=== PATIENT | female | born 1940 | race African-American/Black ===

== ENCOUNTER 2020-03-15 14:47 | Inpatient (IN) | payer MEDICARE, OTHER ==
[~2020-03-15] VITALS: Ht 160 cm; Wt 69.4 kg
[~2020-03-15 14:47] MED LIST: DICY20TA32 PO; FENO160T PO; FOLI1TAB94 PO; HYDR12.55 PO; LOSA100T3 PO; MELA3TAB41 PO; METH500T PO; OMEP20CA4 PO; SPIR25TA PO
--- NOTE | 2020-03-15 15:22 | NUR ---
ONDINA FROM [facility]. TO ER BED 5. AAOX4. NOT IN RESP DISTRESS, BRAETHING EVEN AND UNLABORED. BROUGHT IN FOR DIZZYNESS, WEAKNESS AND COUGH SINCE THIS MORNING. PT REPORT NAUSEA BUT DENIES VOMITING NOR ABDOMINAL PAIN. PT NOTED TEMP OF 99.5. MD AT BEDSIDE FOR EVAL. AWAITING FOR ORDERS
--- NOTE | 2020-03-15 16:08 | NUR ---
IV LINE OBTAINED ON L WRIST 20G. BLOOD DRAWN AND GIVEN TO LAB DAVID H AT BEDSIDE. EKG DONE BY EMT.
[2020-03-15 16:16] LABS: BASOPHILS % (AUTO) 0.7 % (0.0-2.0); EOSINOPHILS % (AUTO) 0.3 % (0.0-6.0); HEMATOCRIT 39 % (33-45); HEMOGLOBIN 12.7 g/dL (11.5-14.8); LYMPHOCYTES % (AUTO) 30.5 % (20.0-44.0); MEAN CORPUSCULAR HGB CONC 32 g/dl (31.0-36.0); MEAN CORPUSCULAR VOLUME 93 fL (82-100); MONOCYTES # (AUTO) 0.5 /CMM (0.1-1.30); MONOCYTES % (AUTO) 16.5 % (2.0-12.0); NEUTROPHILS # (AUTO) 1.7 /CMM (1.8-8.9); PLATELET COUNT (AUTO) 200 /CMM (150-450); RED BLOOD CELL COUNT(AUTO) 4.24 MIL/uL (4.0-5.2); WHITE BLOOD COUNT (AUTO) 3.3 K/uL (4.3-11.0)
--- NOTE | 2020-03-15 16:27 | NUR ---
TO CT ON [place]
[2020-03-15 16:32] LABS: CALCIUM, SERUM 9.7 mg/dL (8.5-10.1); CARBON DIOXIDE 30 mmol/L (21-32); CHLORIDE 103 mmol/L (98-107); CREATININE 1.2 mg/dL (0.6-1.3); GLUCOSE 130 mg/dL (74-106); POTASSIUM 4.3 mmol/L (3.5-5.1); SODIUM SERUM 138 mmol/L (136-145); UREA NITROGEN, BLOOD 21 mg/dL (7-18)
[2020-03-15 17:55] LABS: BAND % (MANUAL) 5 % (0.0-5.0); LYMPHOCYTES % (MANUAL) 35 % (16-48); MONOCYTES % (MANUAL) 11 % (0-11.0); NEUTROPHILS % (MANUAL) 49 (42-76)
--- NOTE | 2020-03-15 18:00 | NUR ---
CALLED RAYNA LOMBARDI [phone] FOOD BAGGING MACHINE OPERATOR IS DIGNA SPEAKING WITH DR. HAMLIN.
--- NOTE | 2020-03-15 18:47 | NUR ---
US DONE AT BEDSIDE
--- NOTE | 2020-03-15 20:05 | NUR ---
BED 306-2
--- NOTE | 2020-03-15 20:17 | NUR ---
REPORT GIVEN TO VALERIE REDDY FOR CHUY
[2020-03-15 20:30] VITALS: BP 139/71
--- NOTE | 2020-03-15 20:30 | NUR ---
PT TRANSPORTED TO UNIT ON [place] WITH EMT AND RN AT BEDSIDE USING ACLS PROTOCOL. NAD NOTED DURING TRANSPORT. PT AMBULATED FROM GURNEY TO BED WITH MIN SBA.
--- NOTE | 2020-03-15 21:00 | NUR ---
TUBE COVERER NOTES BODY TEMPERATURE OF 99.6, COOLING MEASURES PROVIDED.
--- NOTE | 2020-03-15 21:00 | NUR ---
WHEEL BORERADVANCED PRACTICE PROVIDER NOTES RECEIVED PATIENT FROM ER VIA KAREN, ALERT AND ORIENTED X 3, AMBULATORY. VERBALLY RESPONSIVE AND ABLE TO FOLLOW DIRECTIONS. BREATHING REGULAR AND UNLABORED ON ROOM AIR. LEFT WRIST G20 IV LINE INTACT AND PATENT, FLUSHING WELL WITH NO BLEEDING OR S/S OF INFILTRATION NOTED. VITAL SIGNS TAKEN. BODY ASSESSMENT DONE, OBSERVED WITH GENERALIZED SKIN DRYNESS. BELONGINGS CHECKED BY JOURNEYMAN TOOL AND DIE MAKER. PATIENT HAS A POLST AND ALSO WISHES TO BE FULL CODE. ATTACHED TO FLAVOR ROOM WORKER WITH INITIAL RHYTHM OF NSR AT 74bpm. DENIES SUICIDAL IDEATION. NO COMPLAINTS OF PAIN/DISCOMFORT REPORTED AT THIS TIME. BED LOW AND LOCKED ON SEMI FOWLERS POSITION. CALL LIGHT IN REACH, BED ALARM ON. WILL CONTINUE TO MONITOR.
[2020-03-15] MEDS ORDERED: IV NS 0.9% 1,000 ML IV PRN (22:00)
--- NOTE | 2020-03-15 22:00 | NUR ---
FIELD ARTILLERY CANNONEER NOTES RECHECK BODY TEMP. 99.1
--- NOTE | 2020-03-15 23:00 | NUR ---
FAMILY LIFE COUNSELOR NOTES CALLED 'S OFFICE AND SPOKE TO ON-CALL ORDER DETAILER LE WITH LAB ORDERS, DO EKG AND 2D ECHO IN AM, CARDIAC DIET, CONTINUE HOME MEDS AND START IV FLUIDS ALL NOTED AND CARRIED OUT.
[2020-03-16] VITALS: BP 149/85
--- NOTE | 2020-03-16 01:30 | NUR ---
DIRECT SUPPORT STAFF MEMBER NOTES SPECIMEN FOR URINALYSIS OBTAINED, KEPT ON THE FRIDGE.
[2020-03-16 03:45] LABS: APPEARANCE,URINE CLEAR (CLEAR); BILIRUBIN,URINE NEGATIVE (NEGATIVE); BLOOD, URINE SMALL Ery/uL (NEGATIVE); COLOR,URINE YELLOW (YELLOW); KETONES,URINE NEGATIVE (NEGATIVE); LEUKOCYTE ESTERASE ,URINE TRACE (NEGATIVE); NITRITE, URINE NEGATIVE (NEGATIVE); PH,URINE 5.5 (5.0-8.0); PROTEIN,URINE NEGATIVE (NEGATIVE); UGLUCOSE NEGATIVE (NEGATIVE); UROBILINOGEN,URINE 0.2 EU/dL (0.2)
[2020-03-16 03:50] LABS: BACTERIA,URINE Few /HPF (None Seen); RBC,URINE 21-50 /HPF (0-2); SQUAMOUS EPITHELIAL CELL,UR Few /HPF (None Seen); WBC,URINE 21-50 /HPF (0-3)
[2020-03-16 04:00] VITALS: BP 154/83
[2020-03-16 06:16] LABS: BASOPHILS % (AUTO) 0.6 % (0.0-2.0); EOSINOPHILS % (AUTO) 0.6 % (0.0-6.0); HEMATOCRIT 37 % (33-45); HEMOGLOBIN 12.1 g/dL (11.5-14.8); LYMPHOCYTES # (AUTO) 1.1 /CMM (0.8-4.8); LYMPHOCYTES % (AUTO) 41.7 % (20.0-44.0); MEAN CORPUSCULAR HGB CONC 33 g/dl (31.0-36.0); MEAN CORPUSCULAR VOLUME 93 fL (82-100); MONOCYTES # (AUTO) 0.4 /CMM (0.1-1.30); MONOCYTES % (AUTO) 16.8 % (2.0-12.0); NEUTROPHILS % (AUTO) 40.3 % (43.0-81.0); PLATELET COUNT (AUTO) 175 /CMM (150-450); RED BLOOD CELL COUNT(AUTO) 3.94 MIL/uL (4.0-5.2); WHITE BLOOD COUNT (AUTO) 2.6 K/uL (4.3-11.0)
--- NOTE | 2020-03-16 06:20 | NUR ---
FOOD SERVICE TRAY ATTENDANT CLOSING NOTES PATIENT IN BED ALERT AND ORIENTED X 3. AFEBRILE WITH NO S/S OF DISTRESS OBSERVED. LEFT WRIST G20 IV LINE PATENT AND FLUSHING WELL. MAINTAINED ON CARDIAC MONITORING WITH NSR AT 75bpm. NO COMPLAINTS OF PAIN/DISCOMFORT REPORTED THE WHOLE SHIFT. BED LOW AND LOCKED ON SEMI FOWLERS POSITION. CALL LIGHT IN REACH, BED ALARM ON. WILL ENDORSE TO MORNING SHIFT FOR CHUY.
[2020-03-16 07:16] LABS: CALCIUM, SERUM 9.1 mg/dL (8.5-10.1); CARBON DIOXIDE 29 mmol/L (21-32); CHLORIDE 106 mmol/L (98-107); GLUCOSE 124 mg/dL (74-106); POTASSIUM 3.9 mmol/L (3.5-5.1); SODIUM SERUM 141 mmol/L (136-145); UREA NITROGEN, BLOOD 14 mg/dL (7-18)
[2020-03-16 08:00] VITALS: BP 141/76
[2020-03-16] MEDS ORDERED: FENOFIBRATE NANOCRYS (145 MG) 145 MG TABLET PO SCH (09:00)
[2020-03-16] MEDS ORDERED: METHOCARBAMOL (500MG) 500 MG TABLET PO SCH (09:00)
[2020-03-16] MEDS ORDERED: LOSARTAN POTASSIUM 50 MG TABLET PO SCH (09:00)
[2020-03-16] MEDS ORDERED: Fenofibrate 48 MG TABLET PO SCH (09:00)
[2020-03-16] MEDS ORDERED: OMEPRAZOLE 20 MG CAPSULE.DR PO SCH (09:00)
[2020-03-16] MEDS ORDERED: SPIRONOLACTONE 25 MG TABLET PO SCH (09:00)
[2020-03-16] MEDS ORDERED: FOLIC ACID 1 MG TABLET PO SCH (09:00)
[2020-03-16] MEDS ORDERED: HYDROCHLOROTHIAZIDE 25 MG TABLET PO SCH (09:00)
[2020-03-16] MEDS ORDERED: DICYCLOMINE HCL 10 MG CAPSULE PO SCH (09:00)
[2020-03-16] MEDS: SPIRONOLACTONE 25 MG TABLET PO SCH (09:37)
[2020-03-16] MEDS: FOLIC ACID 1 MG TABLET PO SCH (09:38)
[2020-03-16] MEDS: METHOCARBAMOL (500MG) 500 MG TABLET PO SCH ×3 (09:38→18:46)
[2020-03-16] MEDS: HYDROCHLOROTHIAZIDE 25 MG TABLET PO SCH (09:39)
[2020-03-16] MEDS: DICYCLOMINE HCL 10 MG/5 ML UDC PO SCH ×2 (09:41→18:46)
[2020-03-16] MEDS: PANTOPRAZOLE 40 MG TABLET.DR PO SCH (09:44)
[2020-03-16] MEDS: LOSARTAN POTASSIUM 25 MG TABLET PO SCH (09:44)
[2020-03-16 12:00] VITALS: BP 125/77
--- NOTE | 2020-03-16 14:00 | NUR ---
covid 19 test done,pt. tolerated poorly.now to be monitored till test results back.
--- NOTE | 2020-03-16 15:00 | NUR ---
iv hep locked.
[2020-03-16 16:00] VITALS: BP 144/84
[2020-03-16 17:52] LABS: CALCIUM, SERUM 9.4 mg/dL (8.5-10.1); POTASSIUM 4.3 mmol/L (3.5-5.1)
--- NOTE | 2020-03-16 19:38 | NUR ---
RN OPEN NOTES PATIENT IS LAYING IN BED. BED IS IN LOWEST LOCKED POSITION WITH SIDE RAILS UP. NO COMPLAINTS OF PAIN AT THIS TIME. NO SOB/ ACUTE RESPIRATORY DISTRESS NOTED. CALL LIGHT IS WITHIN REACH. WILL CONTINUE TO MONITOR.
[2020-03-16 20:00] VITALS: BP 124/60
[2020-03-16] MEDS: ATORVASTATIN 10 MG TABLET PO SCH (21:09)
--- NOTE | 2020-03-16 21:14 | NUR ---
RN NOTES NOTIFIED DR. LOMBARDI REGARDING PATIENT'S TEMPERATURE OF 100.3. DR SAID DO NOT PUT IN ANY ORDERS FOR ANTIPYRETICS, JUST APPLY COOLING MEASURES. MESSAGE IS NOTED AND CARRIED OUT.
[2020-03-17] VITALS: BP_SYST 153; BP_DIAS 80; BP_DIAS 84
[2020-03-17 04:00] VITALS: BP 160/81
--- NOTE | 2020-03-17 06:48 | NUR ---
RN CLOSE NOTES PATIENT IS LAYING IN BED. BED IS IN LOWEST LOCKED POSITION WITH SIDE RAILS UP, SEMI FOWLERS. APPEARS COMFORTABLE/ NO COMPLAINTS OF PAIN. ON RA SATURATING AT 97%. NO SOB/ ACUTE RESPIRATORY DISTRESS NOTED. CALL LIGHT IS WITHIN REACH. IV ON L WRIST #20G IS PATENT AND INTACT. WILL ENDORSE TO AM NURSE.
[2020-03-17] MEDS: PANTOPRAZOLE 40 MG TABLET.DR PO SCH (07:31)
--- NOTE | 2020-03-17 07:45 | NUR ---
Tele/RN - Assessment Patient is awake, A/O x 4, no complaints overnight, SpO2 on room air is 93-95%, no SOB/respiratory distress, denies pain, no c/o dizziness, tele shows SR. Skin is intact. Patient is ambulatory with assist. Fall and aspiration precautions maintained. Patient was placed on contact and droplet precautions for r/o Covid-19. Will continue with current medical management.
[2020-03-17 08:13] LABS: EOSINOPHILS % (AUTO) 0.5 % (0.0-6.0); HEMOGLOBIN 12.4 g/dL (11.5-14.8); LYMPHOCYTES # (AUTO) 1.3 /CMM (0.8-4.8); MEAN CORPUSCULAR HGB CONC 33 g/dl (31.0-36.0); MONOCYTES # (AUTO) 0.9 /CMM (0.1-1.30); RED BLOOD CELL COUNT(AUTO) 4.14 MIL/uL (4.0-5.2)
[2020-03-17 08:16] VITALS: BP 118/63
[2020-03-17 08:16] LABS: BASOPHILS % (AUTO) 0.5 % (0.0-2.0); HEMATOCRIT 38 % (33-45); LYMPHOCYTES % (AUTO) 25.7 % (20.0-44.0); MEAN CORPUSCULAR VOLUME 92 fL (82-100); MONOCYTES % (AUTO) 17.7 % (2.0-12.0); NEUTROPHILS # (AUTO) 2.9 /CMM (1.8-8.9); NEUTROPHILS % (AUTO) 55.6 % (43.0-81.0); WHITE BLOOD COUNT (AUTO) 5.2 K/uL (4.3-11.0)
[2020-03-17] MEDS: HYDROCHLOROTHIAZIDE 25 MG TABLET PO SCH (08:22)
[2020-03-17] MEDS: LOSARTAN POTASSIUM 25 MG TABLET PO SCH (08:22)
[2020-03-17] MEDS: FOLIC ACID 1 MG TABLET PO SCH (08:22)
[2020-03-17] MEDS: SPIRONOLACTONE 25 MG TABLET PO SCH (08:22)
[2020-03-17] MEDS: METHOCARBAMOL (500MG) 500 MG TABLET PO SCH ×3 (08:22→16:49)
[2020-03-17] MEDS: ASPIRIN EC 81 MG TABLET.DR PO SCH (08:23)
[2020-03-17] MEDS: DICYCLOMINE HCL 10 MG/5 ML UDC PO SCH ×2 (08:23→16:53)
[2020-03-17 08:37] LABS: ALBUMIN 3.3 g/dL (3.4-5.0); BILIRUBIN,TOTAL 0.2 mg/dL (0.2-1.0); CALCIUM, SERUM 9.8 mg/dL (8.5-10.1); POTASSIUM 4.4 mmol/L (3.5-5.1); TOTAL PROTEIN, SERUM 7.2 g/dL (6.4-8.2)
[2020-03-17 12:25] LABS: PLATELET COUNT (AUTO) 173 /CMM (150-450)
[2020-03-17 12:31] LABS: BAND % (MANUAL) 2 % (0.0-5.0); LYMPHOCYTES % (MANUAL) 20 % (16-48); MONOCYTES % (MANUAL) 15 % (0-11.0); NEUTROPHILS % (MANUAL) 62 (42-76); REACTIVE LYMPHOCYTES 1 % (0-0)
--- NOTE | 2020-03-17 13:35 | NUR ---
Tele/RN - Notes Per angel Adkins to d/c tele monitoring.
[2020-03-17 16:01] VITALS: BP 127/71
--- NOTE | 2020-03-17 18:20 | NUR ---
Tele/RN - End of shift summary No significant change in condition seen, afebrile, tmax 99.6F the whole shift, SpO2 93-98% on room air, denies pain, appetite improved. Patient tested positive for Covid-19, relayed to Dr. Golden. Charge nurse and nursing sup made aware. Awaiting for bed availability in [place]. Plan of care discussed with patient.
--- NOTE | 2020-03-17 19:30 | NUR ---
MS RN: RECEIVED PATIENT Patient in bed, awake, A/O x3. On RA denies SOB. Skin intact, dryness BLE. No IV peripheral line in place, per report patient pulled out by herself thinking she will go home. Contact/Droplet isolation. Fall precaution maintained.
[2020-03-17 20:00] VITALS: BP 116/63
[2020-03-17 20:26] VITALS: BP 116/63
[2020-03-17] MEDS: ATORVASTATIN 10 MG TABLET PO SCH (21:20)
[2020-03-18] VITALS (10 sets, daily range): BP systolic 96–116; BP diastolic 47–64
--- NOTE | 2020-03-18 06:07 | NUR ---
STORE KEEPER: END OF SHIFT REPORT Patient in bed, Oxygen sat 99% on RA, tolerating well, denies SOB. Temp spiked 100.2 last night, curved down to 98.8 after cooling measure, denies pain, no cough. Sinus rhythm in the Tele monitor. Fall precaution maintained. Will endorse to oncoming RN.
--- NOTE | 2020-03-18 07:25 | NUR ---
ATTENDANT HONOR BAR OPENING NOTE Received patient asleep in bed comfortable on RA tolerating well no signs of distress. Tele reading SR. Has RFA 20g. Patient is Covid positive. Cont on hospitalization. Safety measure reinforced. Call light within reach. Bed locked and on lowest position. Will cont to monitor.
[2020-03-18] MEDS: LOSARTAN POTASSIUM 25 MG TABLET PO SCH (09:09)
[2020-03-18] MEDS: HYDROCHLOROTHIAZIDE 25 MG TABLET PO SCH (09:10)
[2020-03-18] MEDS: METHOCARBAMOL (500MG) 500 MG TABLET PO SCH ×3 (09:10→17:28)
[2020-03-18] MEDS: ASPIRIN EC 81 MG TABLET.DR PO SCH (09:10)
[2020-03-18] MEDS: PANTOPRAZOLE 40 MG TABLET.DR PO SCH (09:10)
[2020-03-18] MEDS: SPIRONOLACTONE 25 MG TABLET PO SCH (09:10)
[2020-03-18] MEDS: FOLIC ACID 1 MG TABLET PO SCH (09:10)
[2020-03-18] MEDS: DICYCLOMINE HCL 10 MG/5 ML UDC PO SCH ×2 (09:11→17:27)
[2020-03-18] MEDS: ENOXAPARIN SODIUM 40 MG/0.4 ML DISP.SYRIN SQ SCH (17:27)
--- NOTE | 2020-03-18 18:38 | NUR ---
TICKER INSTALLER CLOSING NOTE Patient in bed awake. Watching tv. Relaxed and calm. No signs of distress RA tolerating well. No co pain or discomfort. All due meds given. Vital signs within normal limits. Safety measures reinforced. Call light within reach. Will endorse to pulmonary physician nurse for femi.
[2020-03-18] MEDS: ATORVASTATIN 10 MG TABLET PO SCH (22:01)
[2020-03-19] VITALS: BP 116/47
[2020-03-19 04:00] VITALS: BP_SYST 102; BP_SYST 116; BP_SYST 96; BP_DIAS 47; BP_DIAS 50; BP_DIAS 59
--- NOTE | 2020-03-19 06:09 | NUR ---
11-2 TELE/RN CLOSING NOTES PATIENT ALERT, ORIENTED X2, ABLE TO COOPERATE TO CARE. ON CONTACT ISOLATION FOR POSITIVE RESULT OF COVID. RESPIRATIONS EVEN AND UNLABORED, BED LOCKED, CALL LIGHTS WITHIN REACH. MONITORED FOR ANY CHANGES, ON ROOM AIR. TELE WITH SR. ABLE TO TOLERATE MEDICATION BY MOUTH, WILL ENDORSE TO AM RN FOR CHUY.
--- NOTE | 2020-03-19 07:59 | NUR ---
MANAGER CULTURE NOTES PATIENT IN BED RESTING NO SOB OR ACUTE DISTRESS NOTED. PATIENT SLEEPING. BED IN LOW LOCKED POSITION, CALL LIGHT WITHIN REACH. WILL CONTINUE TO MONITOR.
[2020-03-19 08:00] VITALS: BP_SYST 106; BP_SYST 130; BP_DIAS 52; BP_DIAS 83
[2020-03-19] MEDS: ASPIRIN EC 81 MG TABLET.DR PO SCH (08:23)
[2020-03-19] MEDS: PANTOPRAZOLE 40 MG TABLET.DR PO SCH (08:24)
[2020-03-19] MEDS: FOLIC ACID 1 MG TABLET PO SCH (08:24)
[2020-03-19] MEDS: SPIRONOLACTONE 25 MG TABLET PO SCH (08:24)
[2020-03-19] MEDS: METHOCARBAMOL (500MG) 500 MG TABLET PO SCH ×3 (08:24→16:48)
[2020-03-19] MEDS: HYDROCHLOROTHIAZIDE 25 MG TABLET PO SCH (08:24)
[2020-03-19] MEDS: DICYCLOMINE HCL 10 MG/5 ML UDC PO SCH ×2 (08:26→16:48)
[2020-03-19] MEDS: ENOXAPARIN SODIUM 40 MG/0.4 ML DISP.SYRIN SQ SCH (08:27)
[2020-03-19] MEDS: LOSARTAN POTASSIUM 25 MG TABLET PO SCH (08:51)
[2020-03-19 12:00] VITALS: BP 118/62
--- NOTE | 2020-03-19 15:30 | NUR ---
RN NOTES PATIENT WAS EVALUATED BY DR. LOMBARDI VIA TELE MEDICINE. NO NEW ORDERS. WILL CONTINUE TO MONITOR.
[2020-03-19 16:00] VITALS: BP 120/76
--- NOTE | 2020-03-19 18:34 | NUR ---
RN NOTES PATIENT IN BED RESTING NO SOB OR ACUTE DISTRESS NOTED. ALL DUE MEDICATIONS ADMINISTERED. ALL NEEDS MET. NO ACUTE CHANGES NOTED DURING AM SHIFT. WILL ENDORSE TO PM SHIFT CHUY.
--- NOTE | 2020-03-19 19:30 | NUR ---
LUNCH WAGON OPERATOR OPENING NOTE RECEIVED PATIENT IN BED. A/OX2 - 3. TOLERATING ROOM AIR AT THIS TIME. RESPIRATIONS ARE EVEN AND UNLABORED. NO S/S SOB NOTED. NO C.O PAIN AT THIS TIME. EXTERNAL TELE MONITOR READS SINUS RHYTHM HR 81. IN NO APPARENT DISTRESS. IV ACCESS IN RFA#20 PATENT AND SALINE LOCKED. BED IS LOW AND LOCKED, HOB ELEVATED IN SEMI FOWLERS, SIDE RAILS UP X2, CALL LIGHT WITHIN REACH. WILL CONTINUE TO MONITOR.
[2020-03-19 20:00] VITALS: BP 115/60
[2020-03-19] MEDS: ATORVASTATIN 10 MG TABLET PO SCH (21:08)
[2020-03-19] MEDS: SENNOSIDES 8.6 MG TABLET PO SCH (21:08)
[2020-03-20] VITALS: BP 120/58
[2020-03-20 04:00] VITALS: BP 114/60
--- NOTE | 2020-03-20 06:51 | NUR ---
PRIMARY EDUCATION PROFESSOR CLOSING NOTE PATIENT IN BED. A/OX2. TOLERATING ROOM AIR. RESPIRATIONS ARE EVEN AND UNLABORED. NO SOB NOTED. NO C/O PAIN T/O SHIFT. EXTERNAL TELE MONITOR READS SINUS RHYTHM HR 81. NO DISTRESS NOTED. IV ACCESS MAINTAINED IN RFA#20 PATENT AND SALINE LOCKED. BED REMAINS LOW AND LOCKED, HOB ELEVATED IN SEMI FOWLERS, SIDE RAILS UP X2, BED ALARM ON. CALL LIGHT WITHIN REACH. WILL ENDORSE TO NEXT SHIFT.
[2020-03-20 08:00] VITALS: BP 104/62
--- NOTE | 2020-03-20 08:00 | NUR ---
Patient in bed, not in acute distress. Denies any pain or discomfort. All needs attended. No IV access noted. Patient ate 50% of her breakfast. Still feeling dizzy, safety measures maintained at all times. Bed alarm on for safety precautions. Will cont to monitor
[2020-03-20] MEDS ORDERED: LOSARTAN POTASSIUM 25 MG TABLET PO SCH (09:00)
[2020-03-20] MEDS: DICYCLOMINE HCL 10 MG/5 ML UDC PO SCH ×2 (09:06→17:51)
[2020-03-20] MEDS: ENOXAPARIN SODIUM 40 MG/0.4 ML DISP.SYRIN SQ SCH (09:06)
[2020-03-20] MEDS: FOLIC ACID 1 MG TABLET PO SCH (09:07)
[2020-03-20] MEDS: ASPIRIN EC 81 MG TABLET.DR PO SCH (09:07)
[2020-03-20] MEDS: PANTOPRAZOLE 40 MG TABLET.DR PO SCH (09:07)
[2020-03-20] MEDS: SPIRONOLACTONE 25 MG TABLET PO SCH (09:07)
[2020-03-20] MEDS: METHOCARBAMOL (500MG) 500 MG TABLET PO SCH ×3 (09:08→17:52)
[2020-03-20] MEDS: HYDROCHLOROTHIAZIDE 25 MG TABLET PO SCH (09:08)
[2020-03-20 12:00] VITALS: BP 87/40
--- NOTE | 2020-03-20 13:51 | NUR ---
unit assistant notes Patient noted with low blood pressure 87/40 temp 98.4, HR 72. made aware and new orders recieved to discontinue BP meds and chem7. Noted and carried out. Patient eating her lunch, still c/o dizziness. Denies any pain or discomfort. New IV site obtained in Right forearm. All needs attended. Safety measures intact. Will cont to monitor
[2020-03-20 16:00] VITALS: BP 95/58
[2020-03-20 16:32] LABS: CALCIUM, SERUM 9.3 mg/dL (8.5-10.1); CREATININE 1.3 mg/dL (0.6-1.3); POTASSIUM 4.2 mmol/L (3.5-5.1)
--- NOTE | 2020-03-20 19:10 | NUR ---
RETAIL PROJECT MERCHANDISER OPENING NOTE RECEIVED PATIENT IN BED. A/OX2 - 3. TOLERATING ROOM AIR AT THIS TIME. RESPIRATIONS ARE EVEN AND UNLABORED. NO S/S SOB NOTED. NO PAIN COMPLAINT AT THIS TIME. EXTERNAL TELE MONITOR READS SINUS RHYTHM HR 80'S. IN NO APPARENT DISTRESS. IV ACCESS IN RFA#20 PATENT AND SALINE LOCKED. ON DROPLET ISOALTION FOR COVID 19 (+) BED IS LOW AND LOCKED, HOB ELEVATED IN SEMI FOWLERS, SIDE RAILS UP X2, CALL LIGHT WITHIN REACH. WILL CONTINUE TO MONITOR.
[2020-03-20 20:00] VITALS: BP 105/50
[2020-03-20] MEDS: SENNOSIDES 8.6 MG TABLET PO SCH (21:19)
[2020-03-20] MEDS: ATORVASTATIN 10 MG TABLET PO SCH (21:19)
--- NOTE | 2020-03-20 21:40 | NUR ---
ENTRY LEVEL ADMINISTRATIVE ASSISTANT NOTES PT TEMP 100.2 COOLING MEASURE INITIATED, CALLED DR. LOMBARDI TO ASK PRN TYLENOL FOR FUTURE USE, DR. LOMBARDI DONT GIVE ANY ANTIPYRETIC MEDICINE HE SAY,S HE DONT GIVE ANY ANTIPYRETIC TO HIS ADULT PT FOR THEM TO INCREASE IMMUNE SYSTEM, COOLING MEASURE IS ENOUGH, NOTED AND TO ENDORSE TO AM NURSE
[2020-03-21] VITALS: BP 96/57
[2020-03-21 04:00] VITALS: BP 139/69
--- NOTE | 2020-03-21 04:55 | NUR ---
COMMERCIAL ACCOUNT MANAGER NOTES BP RECHECKED 148/74 HR 72 WILL CONT TO MONITOR
--- NOTE | 2020-03-21 06:33 | NUR ---
RN CLOSING NOTES PT SLEEPING ON BED NO SIGN AND SYMPTOMS OF RESPIRATORY DISTRESS SPO2>95%, ON TELE MONITOR WITH READING SR 80'S NO PAIN COMPLAINT DROPLET ISOLATION MAINTAINED FOR COVID (+) NO SIGNIFICANT CHANGES ON CONDITION NOTED ALL NEEDS ATTENDED SAFETY MEASURE MAINTAINED CALL LIGHT WITHIN REACH WILL ENDORSED TO AM SHIFT NURSE
[2020-03-21 08:00] VITALS: BP 104/55
--- NOTE | 2020-03-21 08:00 | NUR ---
sample tester notes Pt up in bed, not in acute distress. SR on the monitor. Denies any pain or discomfort. Noted with temp of 100, notified and no new orders at this time. Cooling measures provided. Safety measures intact. Breakfast taken with good appetite. Will cont to monitor
[2020-03-21] MEDS: ASPIRIN EC 81 MG TABLET.DR PO SCH (08:40)
[2020-03-21] MEDS: PANTOPRAZOLE 40 MG TABLET.DR PO SCH (08:40)
[2020-03-21] MEDS: DICYCLOMINE HCL 10 MG/5 ML UDC PO SCH ×2 (08:41→16:49)
[2020-03-21] MEDS: FOLIC ACID 1 MG TABLET PO SCH (08:41)
[2020-03-21] MEDS: METHOCARBAMOL (500MG) 500 MG TABLET PO SCH ×3 (08:43→16:50)
[2020-03-21] MEDS: ENOXAPARIN SODIUM 40 MG/0.4 ML DISP.SYRIN SQ SCH (08:44)
[2020-03-21 12:00] VITALS: BP 109/65
[2020-03-21 12:37] LABS: CHOLESTEROL 102 mg/dL (<200); HDL CHOLESTEROL 38 mg/dL (40-60); LDL 56 mg/dL (0-99); TRIGLYCERIDES 108 mg/dL (30-150)
[2020-03-21 16:00] VITALS: BP 116/66
[2020-03-21] MEDS: IV NS 0.9% 1,000 ML IV PRN (16:50)
--- NOTE | 2020-03-21 18:56 | NUR ---
computer repair instructor closing notes Patient up in bed, not in acute distress. Denies any pain or discomfort. All needs attended. Safety measures intact. Will endorse to overnight cashier RN
[2020-03-21 20:00] VITALS: BP 131/72
--- NOTE | 2020-03-21 20:22 | NUR ---
MANAGER DIGITAL NOTES PT IN BED, NOTED TO HAVE RAC/IV SITE LEAKING. INSERTED NEW IV, FLUSHING WELL, DISPOSED OF THE PREVIOUS IV CATH AND DRESSING PER PROTOCOL. WILL CONT TO MONITOR
[2020-03-21] MEDS: ATORVASTATIN 10 MG TABLET PO SCH (21:34)
[2020-03-21] MEDS: SENNOSIDES 8.6 MG TABLET PO SCH (21:34)
[2020-03-22] VITALS: BP 123/61
--- NOTE | 2020-03-22 02:40 | NUR ---
DEVELOPMENT INTERN NOTES PT IN BED NOTED WITH R FOREARM PIV PULLED OUT, WITH MINIMAL BLEEDING. PT SEEMS TO BE CONFUSED, SAYS WAS TRYING TO GO TO THE BATHROOM. PT MONITORED WHILE USING THE BATHROOM AND ASSISTED BACK TO HER BED. IV CATH PROPERLY DISPOSED WILL TRY INSERT ANOTHER IV LINE
[2020-03-22 04:00] VITALS: BP 129/64
[2020-03-22 08:00] VITALS: BP 112/49
--- NOTE | 2020-03-22 08:00 | NUR ---
RN OPENING NOTES PT IS LAYING DOWN IN BED COMFORTABLY. THERE IS NO S/S OF RESPIRATORY DISTRESS, UNLABORED BREATHING, O2 SAT 94% ON RA. NO IV ACCESS AT THIS MOMENT, WILL START AN IV. PT IS A/A/O X3. PT IS ON TELE MONITORING HR 63 BPM AND SR. SAFETY MEASURES ARE IMPLEMENTED BED AT LOWEST POSITION AND LOCKED, CALL LIGHT WITHIN REACH, SIDE RAILS UPX2,WILL CONTINUE TO MONITOR
[2020-03-22] MEDS: DICYCLOMINE HCL 10 MG/5 ML UDC PO SCH ×2 (08:13→17:04)
[2020-03-22] MEDS: ASPIRIN EC 81 MG TABLET.DR PO SCH (08:14)
[2020-03-22] MEDS: PANTOPRAZOLE 40 MG TABLET.DR PO SCH (08:14)
[2020-03-22] MEDS: METHOCARBAMOL (500MG) 500 MG TABLET PO SCH ×3 (08:14→17:04)
[2020-03-22] MEDS: FOLIC ACID 1 MG TABLET PO SCH (08:14)
[2020-03-22] MEDS: ENOXAPARIN SODIUM 40 MG/0.4 ML DISP.SYRIN SQ SCH (08:15)
[2020-03-22] MEDS: IV NS 0.9% 1,000 ML IV PRN ×2 (09:17→22:47)
[2020-03-22 12:00] VITALS: BP_SYST 106; BP_SYST 137; BP_DIAS 59; BP_DIAS 75
[2020-03-22 16:00] VITALS: BP 124/61
--- NOTE | 2020-03-22 16:00 | NUR ---
RN NOTES PT ATTEMPTED TO GET OUT OF BED WITHOUT USING A CALL LIGHT, RESPONDED TO BED ALARM PT WAS OUT OF BED AND PULLING ON THE IV LINE. IV DISLODGED ATTEMPTED TO PUT IV PT REFUSED AND CHARGE NURSE NOTIFIED. WILL ATTEMPT TO PUT NEW IV AT LATER TIME
--- NOTE | 2020-03-22 18:09 | NUR ---
RN CLOSING NOTES NO ACUTE CHANGES TO PT CONDITION DURING MY SHIFT. PT SATING WELL 95% ON RA. NO S/S OF RESPIRATORY DISTRESS. NO IV ACCESS AT THIS MOMENT, PT CONTINUES TO REFUSE,CHARGE NURSE NOTIFIED. SAFETY MAINTAINED CALL LIGHT WITHIN REACH,ALL PT NEEDS MET. WILL ENDORSE TO PM NURSE FOR CONTINUITY OF THE CARE.
[2020-03-22 20:00] VITALS: BP 120/57
[2020-03-22] MEDS: ATORVASTATIN 10 MG TABLET PO SCH (21:34)
[2020-03-22] MEDS: SENNOSIDES 8.6 MG TABLET PO SCH (21:34)
[2020-03-23] VITALS (7 sets, daily range): BP systolic 109–134; BP diastolic 47–92
--- NOTE | 2020-03-23 06:25 | NUR ---
RN CLOSING NOTES PATIENT REMAINED IN STABLE CONDITION THROUGHOUT MY SHIFT. NO ACUTE CHANGES TO PATIENT CONDITION HAS BEEN NOTED. NO RESPIRATORY DISTRESS AT THIS MOMENT. ALL PATIENT NEEDS ATTENDED TO, SCHEDULED MEDS GIVEN ON TIME. PATIENT SAFETY WAS MAINTAINED, CALL LIGHT WITHIN REACH, WILL ENDORSE TO AM NURSE FOR CONTINUITY OF CARE.
--- NOTE | 2020-03-23 08:00 | NUR ---
rn notes received patient in the bed a/o x2/3, on room air no acute respiratory distress, v/s stable, patient was refused pain at this time,, patient ambulatory assist bathroom. iv access on left hand intact infusing ns at75 ml/hr intact. call light within to reach, crushed medication and administered with apple sauce. safety precaution maintained all the time.
[2020-03-23] MEDS: ASPIRIN EC 81 MG TABLET.DR PO SCH (09:35)
[2020-03-23] MEDS: FOLIC ACID 1 MG TABLET PO SCH (09:35)
[2020-03-23] MEDS: PANTOPRAZOLE 40 MG TABLET.DR PO SCH (09:35)
[2020-03-23] MEDS: METHOCARBAMOL (500MG) 500 MG TABLET PO SCH ×3 (09:35→16:40)
[2020-03-23] MEDS: ENOXAPARIN SODIUM 40 MG/0.4 ML DISP.SYRIN SQ SCH (09:36)
[2020-03-23] MEDS: DICYCLOMINE HCL 10 MG/5 ML UDC PO SCH ×2 (09:38→16:40)
--- NOTE | 2020-03-23 11:00 | NUR ---
RN NOTES SEEN PATIENT BY Dr LOMBARDI CONTINUED HOSPITALIZATION, PATIENT POSITIVE COVID-19, ISOLATION PRECAUTION.
--- NOTE | 2020-03-23 13:14 | NUR ---
RN NOTES PATIENT TAKEN SCHEDULED MEDICATION, V/S STABLE RESTING IN THE BED. PER HOSPITALIST D/C IV INFUSION.
--- NOTE | 2020-03-23 18:12 | NUR ---
RN NOTES PATIENT TOLERATED DINNER 50%, V/S STABLE, PATIENT AMBULATORY ASSIST BATHROOM, SAFETY PRECAUTION MAINTAINED ALL THE TIME. PATIENT MED COMPLIANT, REFUSED PAIN. CALL LIGHT WITHIN TO REACH. ENDORSED ONCOMING NURSE FOLLOW PLAN OF CARE.
--- NOTE | 2020-03-23 19:15 | NUR ---
AIR EXPORT COORDINATOR OPENING NOTE RECEIVED PATIENT IN BED. A/OX2 - 3. TOLERATING ROOM AIR AT THIS TIME. RESPIRATIONS ARE EVEN AND UNLABORED. NO S/S SOB NOTED. NO PAIN COMPLAINT AT THIS TIME. EXTERNAL TELE MONITOR READS SINUS RHYTHM HR 70'S. IN NO APPARENT DISTRESS. IV ACCESS IN RFA#20 PATENT AND SALINE LOCKED. ON DROPLET ISOALTION FOR COVID 19 (+) BED IS LOW AND LOCKED, HOB ELEVATED IN SEMI FOWLERS, SIDE RAILS UP X2, CALL LIGHT WITHIN REACH. WILL CONTINUE TO MONITOR
[2020-03-23] MEDS: ATORVASTATIN 10 MG TABLET PO SCH (21:22)
[2020-03-23] MEDS: SENNOSIDES 8.6 MG TABLET PO SCH (21:22)
[2020-03-24] VITALS: BP 148/69
[2020-03-24 04:00] VITALS: BP 156/74
--- NOTE | 2020-03-24 06:46 | NUR ---
RN CLOSING NOTES PT SLEEPING ON BED NO SIGN AND SYMPTOMS OF RESPIRATORY DISTRESS SPO2>95%, TELE MONITOR WAS REFUSED SINCE MIDNIGHT NO PAIN COMPLAINT DROPLET ISOLATION MAINTAINED FOR COVID (+) NO SIGNIFICANT CHANGES ON CONDITION NOTED ALL NEEDS ATTENDED SAFETY MEASURE MAINTAINED CALL LIGHT WITHIN REACH WILL ENDORSED TO AM SHIFT NURSE
[2020-03-24] MEDS: PANTOPRAZOLE 40 MG TABLET.DR PO SCH ×2 (07:30→08:09)
[2020-03-24 08:00] VITALS: BP 161/77
[2020-03-24] MEDS: FOLIC ACID 1 MG TABLET PO SCH ×2 (08:09→08:28)
[2020-03-24] MEDS: METHOCARBAMOL (500MG) 500 MG TABLET PO SCH ×4 (08:09→17:00)
[2020-03-24] MEDS: ASPIRIN EC 81 MG TABLET.DR PO SCH ×2 (08:09→08:27)
[2020-03-24] MEDS: ENOXAPARIN SODIUM 40 MG/0.4 ML DISP.SYRIN SQ SCH ×2 (08:11→08:28)
[2020-03-24] MEDS: DICYCLOMINE HCL 10 MG/5 ML UDC PO SCH ×3 (08:11→17:00)
--- NOTE | 2020-03-24 08:30 | NUR ---
RN NOTES MEDICATION NON ADMINISTERED. PT REFUSED LOVENOX RETURNED TO [facility] AND MEDS WERE ARLEADY CRUSHED AND WASTED IN WASTE BIN.
[2020-03-24 12:00] VITALS: BP 161/77
--- NOTE | 2020-03-24 13:25 | NUR ---
MS RN NOTES PATIENT REFUSED THE BLOOD DRAW. WE WILL TRY IT LATER.
[2020-03-24 16:00] VITALS: BP 166/80
--- NOTE | 2020-03-24 19:37 | NUR ---
THERMAL CUTTER HELPER NOTES PATIENT IN BED A/OX2-3. ALL NEEDS ATTENDED. PATIENT REFUSED MEDS AND BLOOD DRAW TODAY. POSSIBLE DC TOMORROW BY DR LOMBARDI. BED AT THE LOWEST POSITION LOCKED. NO SOB OR DISCOMFORT NOTED AT THIS TIME. REPORT GIVEN TO TRACER LATHE SET UP OPERATOR NURSE.
[2020-03-24 20:00] VITALS: BP_SYST 151; BP_SYST 171; BP_DIAS 67
[2020-03-24] MEDS: ATORVASTATIN 10 MG TABLET PO SCH (21:07)
[2020-03-24] MEDS: SENNOSIDES 8.6 MG TABLET PO SCH (21:07)
[2020-03-25] VITALS (7 sets, daily range): BP systolic 145–177; BP diastolic 61–88
[2020-03-25 00:03] LABS: BASOPHILS # (AUTO) 0.1 /CMM (0.0-0.2); BASOPHILS % (AUTO) 3.6 % (0.0-2.0); EOSINOPHILS % (AUTO) 2.3 % (0.0-6.0); HEMATOCRIT 38 % (33-45); HEMOGLOBIN 12.7 g/dL (11.5-14.8); LYMPHOCYTES # (AUTO) 1.3 /CMM (0.8-4.8); LYMPHOCYTES % (AUTO) 33.1 % (20.0-44.0); MEAN CORPUSCULAR HGB CONC 33 g/dl (31.0-36.0); MEAN CORPUSCULAR VOLUME 91 fL (82-100); MONOCYTES # (AUTO) 0.5 /CMM (0.1-1.30); MONOCYTES % (AUTO) 12.3 % (2.0-12.0); NEUTROPHILS # (AUTO) 1.9 /CMM (1.8-8.9); NEUTROPHILS % (AUTO) 48.7 % (43.0-81.0); PLATELET COUNT (AUTO) 202 /CMM (150-450); RED BLOOD CELL COUNT(AUTO) 4.23 MIL/uL (4.0-5.2); WHITE BLOOD COUNT (AUTO) 3.8 K/uL (4.3-11.0)
[2020-03-25 00:17] LABS: CARBON DIOXIDE 24 mmol/L (21-32); CHLORIDE 108 mmol/L (98-107); GLUCOSE 121 mg/dL (74-106); POTASSIUM 4.2 mmol/L (3.5-5.1); SODIUM SERUM 143 mmol/L (136-145); UREA NITROGEN, BLOOD 10 mg/dL (7-18)
--- NOTE | 2020-03-25 07:30 | NUR ---
SOLAR SALES REPRESENTATIVE OPENING NOTES PATIENT WAS RECEIVED IN BED SLEEPING. VS STABLE. NO SIGNS OF ACUTE DISTRESS. PATIENT DENIES ANY PAIN. THERE ARE NO SIGNS OR SYMPTOMS OF PAIN. PATIENT IS VERBAL. PATIENT HAS AN IV ON L HAND, 22G. ALL NEEDS RENDERED AT THIS TIME. ALL SAFETY MECHANISM IN PLACE.
[2020-03-25] MEDS: ENOXAPARIN SODIUM 40 MG/0.4 ML DISP.SYRIN SQ SCH (08:29)
[2020-03-25] MEDS: METHOCARBAMOL (500MG) 500 MG TABLET PO SCH ×3 (08:29→16:57)
[2020-03-25] MEDS: ATORVASTATIN 10 MG TABLET PO SCH (08:30)
[2020-03-25] MEDS: PANTOPRAZOLE 40 MG TABLET.DR PO SCH (08:30)
[2020-03-25] MEDS: ASPIRIN EC 81 MG TABLET.DR PO SCH (08:30)
[2020-03-25] MEDS: FOLIC ACID 1 MG TABLET PO SCH (08:30)
[2020-03-25] MEDS: DICYCLOMINE HCL 10 MG/5 ML UDC PO SCH ×2 (08:33→16:45)
--- NOTE | 2020-03-25 17:00 | NUR ---
THE PATIENT REFUSED TO TAKE THE EVENING DOSE OF METHOCARBAMOL.
--- NOTE | 2020-03-25 18:11 | NUR ---
RN CLOSING NOTES. PATIENT IS RESTING IN BED. VS STABLE. NO SIGNS OF ACUTE DISTRESS. PATIENT DENIES ANY PAIN. THERE ARE NO SIGNS OR SYMPTOMS OF PAIN. PATIENT IS VERBAL. PATIENT HAS AN IV ON L HAND, 22G. PATIENT IS PENDING D/C. ALL NEEDS RENDERED AT THIS TIME. ALL SAFETY MECHANISM IN PLACE. WILL ENDORSE THE INCOMING SHIFT FOR THE CONTINUITY OF CARE.
[2020-03-25] MEDS: SENNOSIDES 8.6 MG TABLET PO SCH (22:21)
[2020-03-26] VITALS: BP 151/75
[2020-03-26 04:00] VITALS: BP 156/68
--- NOTE | 2020-03-26 06:35 | NUR ---
rn notes in bed resting comfortably watching tv. vital signs wnl. no complaint of pain or discomfort. alert and oriented x 4. verbally able to communicate needs. no significant change of condition. remains afebrile with skin warm and dry to touch. kept clean and dry. will endorse to next shift for continuity of care.
--- NOTE | 2020-03-26 07:22 | NUR ---
MS/RN OPENING NOTES RECEIVED PATIENT SLEEPING ON BED BUT EASILY AROUSABLE. PATIENT DENIES PAIN AT THIS TIME. PATIENT IN NO APPARENT DISTRESS AT THIS TIME. IV ACCESS AT LEFT HAND # 22G PATENT AND INTACT. BED IN LOWEST POSITION, SIDE RAILS UP X2. CALL LIGHT WITHIN REACH. WILL CONTINUE TO MONITOR.
[2020-03-26] MEDS: PANTOPRAZOLE 40 MG TABLET.DR PO SCH (07:54)
[2020-03-26 08:00] VITALS: BP_SYST 137; BP_DIAS 67; BP_DIAS 68
[2020-03-26] MEDS: METHOCARBAMOL (500MG) 500 MG TABLET PO SCH ×2 (08:16→13:10)
[2020-03-26] MEDS: FOLIC ACID 1 MG TABLET PO SCH (08:16)
[2020-03-26] MEDS: ASPIRIN EC 81 MG TABLET.DR PO SCH (08:16)
[2020-03-26] MEDS: ENOXAPARIN SODIUM 40 MG/0.4 ML DISP.SYRIN SQ SCH (08:18)
[2020-03-26] MEDS: DICYCLOMINE HCL 10 MG/5 ML UDC PO SCH (08:23)
[2020-03-26] MEDS ORDERED: AMLODIPINE BESYLATE 5 MG TABLET PO SCH (09:00)
[2020-03-26 12:00] VITALS: BP 95/74
--- NOTE | 2020-03-26 17:00 | NUR ---
MS/RN NOTES PATIENT IS ALERT AND ORIENTED X3. PATIENT IN NO APPARENT DISTRESS NOTED. PATIENT DENIES PAIN AT THIS TIME. IN ROOM AIR AND SATURATION IS AT 100%. RESPIRATION REGULAR AND UNLABORED. ALL DUE MEDICATION WAS GIVEN. SEEN AND EXAMINED BY MD WITH ORDERS MADE AND CARRIED OUT. PATIENT TRANSFERRED TO [facility] AND WAS GIVEN THE REPORT TO DIANA PADILLA. PATIENT LEFT THE HOSPITAL IN MEDICALLY STABLE CONDITION. PATIENT DISCHARGED AT 1420 AND TELEGRAPHIC TYPEWRITER OPERATOR BY 2 EMT VIA AMBULANCE.
== END 2020-03-26 14:20 | DRG 178 ==
LOC: ER 14:51 → TELE 20:08 → TELE1 03-17 18:29 → MEDSG1 03-24 07:07
PROVIDERS: ADMIT Internal Medicine; ATTEND Internal Medicine
DX: U07.1 COVID-19 (principal); N17.9 Acute kidney failure, unspecified; G93.40 Encephalopathy, unspecified; R62.7 Adult failure to thrive; E11.9 Type 2 diabetes mellitus without complications; I10 Essential (primary) hypertension; D70.9 Neutropenia, unspecified; K58.9 Irritable bowel syndrome, unspecified; F03.90 Unspecified dementia, unspecified severity, without behavioral disturbance, psychotic disturbance, mood disturbance, and anxiety; E66.9 Obesity, unspecified; Z74.01 Bed confinement status; J44.9 Chronic obstructive pulmonary disease, unspecified; Z68.27 Body mass index [BMI] 27.0-27.9, adult; Z72.0 Tobacco use; Z88.0 Allergy status to penicillin; R53.1 Weakness; E78.1 Pure hyperglyceridemia; E86.0 Dehydration; K21.9 Gastro-esophageal reflux disease without esophagitis; I95.9 Hypotension, unspecified; R50.9 Fever, unspecified; Z86.73 Personal history of transient ischemic attack (TIA), and cerebral infarction without residual deficits; Z82.49 Family history of ischemic heart disease and other diseases of the circulatory system
CPT/HCPCS: 36415; 70450-TC; 71045-TC; 80048-TC; 80053-TC; 80061-TC; 81000-TC; 83615-TC; 83880; 84484-TC; 85025-TC; 87081-TC; 87086-TC; 93307-TC; 93880-TC; G0378; J1650; J7030; J7040; U0003-CS